=== PATIENT | male | born 1940 | race Caucasian/White ===

== ENCOUNTER 2016-07-29 15:58 | Emergency (ER) | payer MEDICARE ==
--- NOTE | 2016-08-10 10:17 | ER ---
ADMIT: 07/29/2016 RM/LOC: ER [facility] MR#: [id number] [id number] SUZANNA SOTO [id number] [address] Emergency Room Report SEX: M AGE: 75 : 1940 DATE: 07/29/2016 ADDENDUM: CHIEF COMPLAINT: Right ear pain and headache. HISTORY OF PRESENT ILLNESS: This is a 75-year-old, who has been dealing with this otitis media since March. He has a CT by Dr. Busch, it did show some moderate sphenoid and right maxillary sinus mucosal thickening. He has just finished clindamycin 3 to 4 days ago. She sent him here in case he possibly had to be hospitalized. The CBC and BMP are done. BMP is normal except for glucose of 176, a GFR of 65. CBC is normal except for hemoglobin of 13.2. Dr. Montero also examined the patient. It sounds like this is more of a chronic otitis media or sinusitis issue. He needs to see ENT, but does not need to be admitted. I sent him home with Augmentin for 10 days. I will have him follow up with the ENT as soon as possible. CLINICAL IMPRESSION: Chronic sinusitis and otitis media. MOI Velarde / Jamarcus Montero MD / modl JOB #: [id number] CC: Jamarcus Montero MD, Attending Physician [facility] Physician, Family Physician
== END 2016-07-29 17:47 | disposition home or self-care (01) ==
LOC: ER 15:58
DX: H66.91 Otitis media, unspecified, right ear (principal); J32.9 Chronic sinusitis, unspecified